=== PATIENT | male | born 1985 | race Caucasian/White ===

== ENCOUNTER 2017-06-16 09:34 | Inpatient (IN) | payer OTHER ==
[~2017-06-16] VITALS: Ht 175.2 cm; Wt 74.1 kg
[~2017-06-16 09:34] MED LIST: DEXTROAMPH SACC20 M1 PO; KLONOPIN0.5 MG PO; LEXAPRO10 MG PO; NEURONTIN400 MG PO
[2017-06-16 09:37] VITALS: BP 126/88
[2017-06-16] MEDS ORDERED: SUBOXONE 8 MG-1 EACH SL (09:41)
[2017-06-16 10:09] LABS: BASO % 0.3 % (0.0-1.0); EOS # 0.1 10*3/uL (0.0-0.4); EOS % 1.1 % (1.0-4.0); HEMATOCRIT 38.8 % (42.0-52.0); HEMOGLOBIN 13.1 g/dl (14.0-18.0); LYMPH # 2.5 10*3/uL (1.3-4.4); LYMPH % 38.1 % (27.0-41.0); MEAN CELL VOLUME 91.1 fl (80.0-94.0); MEAN CORPUSCULAR HGB 30.8 pg (27.0-31.0); MEAN CORPUSCULAR HGB CONC 33.8 g/dl (33.0-37.0); MEAN PLATELET VOLUME 12.3 fl (9.6-12.3); MONO # 0.4 10*3/uL (0.1-1.0); MONO % 5.6 % (3.0-9.0); NEUT # 3.6 10*3/uL (2.3-7.9); NEUT % 54.6 % (47.0-73.0); PLATELET COUNT AUTOMATED 134 10*3/uL (130-400); RED BLOOD COUNT 4.26 10*6/uL (4.50-5.90); RED CELL DISTRI WIDTH 12.3 % (0-14.5); WHITE BLOOD COUNT 6.6 10*3/uL (4.8-10.8)
[2017-06-16 10:21] LABS: BUN 8 mg/dl (7-24); CHLORIDE 102 mmol/L (98-107); CREATININE 0.63 mg/dL (0.70-1.30); POTASSIUM 3.8 mmol/L (3.5-5.1); SODIUM 138 mmol/L (136-145)
[2017-06-16 10:28] LABS: BILIRUBIN NEGATIVE (NEGATIVE); BLOOD NEGATIVE (NEGATIVE); CLARITY CLEAR (CLEAR); COLOR YELLOW (YELLOW); GLUCOSE NEGATIVE (NEGATIVE); KETONE NEGATIVE (NEGATIVE); LEUKO ESTERASE NEGATIVE (NEGATIVE); NITRITE NEGATIVE (NEGATIVE); UROBILINOGEN 0.2 E.U./dl (0.2-1.0)
[2017-06-16 10:32] LABS: ACETAMINOPHEN (TYLENOL) < 2.0 ug/ml (10-30); ETHYL ALCOHOL < 3.0 mg/dl (<3)
[2017-06-16 10:38] LABS: URINE AMPHETAMINES < 1000 (1000ng/ml); URINE BARBITURATES < 200 (200ng/ml); URINE BENZODIAZEPINES < 200 (200ng/ml); URINE CANNABINOIDS (THC) < 50 (50ng/ml); URINE COCAINE < 300 (300ng/ml); URINE METHADONE < 300 (300ng/ml); URINE OPIATES < 300 (300ng/ml)
[2017-06-16 10:39] LABS: URINE PHENCYCLIDINE < 25 (25ng/ml)
[2017-06-16 10:44] LABS: RBC 0-2 rbc/hpf (0-2); WBC 0-2 wbc/hpf (0-5)
[2017-06-16 11:00] VITALS: BP 118/70
[2017-06-16 12:30] VITALS: BP 120/69
[2017-06-16 13:53] LABS: ALBUMIN 3.6 gm/dl (3.1-4.5); ALKALINE PHOSPHATASE 59 U/L (45-117); BUN 9 mg/dl (7-24); CHLORIDE 104 mmol/L (98-107); POTASSIUM 3.9 mmol/L (3.5-5.1); SGOT/AST 16 IU/L (3-35); SGPT/ALT 44 U/L (12-78); SODIUM 138 mmol/L (136-145); TOTAL PROTEIN 7.9 gm/dL (6.4-8.2)
[2017-06-16 15:08] VITALS: BP 129/87
[2017-06-16 20:00] VITALS: BP 141/87
[2017-06-17] VITALS: BP 107/54
[2017-06-17 04:00] VITALS: BP 111/63
[2017-06-17 05:16] LABS: ALBUMIN 3.5 gm/dl (3.1-4.5); ALKALINE PHOSPHATASE 58 U/L (45-117); BUN 11 mg/dl (7-24); CHLORIDE 104 mmol/L (98-107); CREATININE 0.65 mg/dL (0.70-1.30); POTASSIUM 3.8 mmol/L (3.5-5.1); SGOT/AST 20 IU/L (3-35); SGPT/ALT 38 U/L (12-78); SODIUM 141 mmol/L (136-145); TOTAL PROTEIN 7.5 gm/dL (6.4-8.2)
[2017-06-17 08:00] VITALS: BP 108/71
[2017-06-17 12:00] VITALS: BP 109/62
[2017-06-17 16:00] VITALS: BP 115/71
[2017-06-17 20:00] VITALS: BP 117/72
== END 2017-06-17 21:16 | disposition left against medical advice (07) | DRG 894 ==
LOC: ED 09:34 → EDHOLD 11:39 → ICCU 11:39 → 5E 12:05 → ICCU 16:36
PROVIDERS: Internal Medicine; Nurse Practitioner
DX: F13.239 Sedative, hypnotic or anxiolytic dependence with withdrawal, unspecified (principal); G93.41 Metabolic encephalopathy; E83.51 Hypocalcemia; F22 Delusional disorders; F19.90 Other psychoactive substance use, unspecified, uncomplicated; F17.200 Nicotine dependence, unspecified, uncomplicated; Z88.9 Allergy status to unspecified drugs, medicaments and biological substances; F41.9 Anxiety disorder, unspecified; D64.9 Anemia, unspecified; F11.10 Opioid abuse, uncomplicated; R73.9 Hyperglycemia, unspecified; Z53.21 Procedure and treatment not carried out due to patient leaving prior to being seen by health care provider

== ENCOUNTER 2018-07-29 23:23 | Emergency (ER) | payer OTHER ==
[~2018-07-29] VITALS: Ht 182.8 cm; Wt 86.2 kg
[~2018-07-29 23:23] MED LIST changes: +SUBOXONE 8 MG-1 EACH SL
[2018-07-30 00:50] LABS: BASO % 0.5 % (0.0-1.0); EOS # 0.3 10*3/uL (0.0-0.4); HEMATOCRIT 43.3 % (42.0-52.0); HEMOGLOBIN 14.3 g/dl (14.0-18.0); LYMPH # 2.9 10*3/uL (1.3-4.4); LYMPH % 34.5 % (27.0-41.0); MEAN CELL VOLUME 90.8 fl (80.0-94.0); MEAN PLATELET VOLUME 13.5 fl (9.6-12.3); MONO # 0.7 10*3/uL (0.1-1.0); NEUT # 4.5 10*3/uL (2.3-7.9); NEUT % 52.8 % (47.0-73.0); PLATELET COUNT AUTOMATED 88 10*3/uL (130-400); RED BLOOD COUNT 4.77 10*6/uL (4.50-5.90); RED CELL DISTRI WIDTH 12.1 % (0-14.5); WHITE BLOOD COUNT 8.5 10*3/uL (4.8-10.8)
[2018-07-30 01:05] LABS: ALBUMIN 3.8 gm/dl (3.1-4.5); ALKALINE PHOSPHATASE 66 U/L (45-117); BUN 14 mg/dl (7-24); CHLORIDE 109 mmol/L (98-107); CREATININE 0.78 mg/dL (0.70-1.30); SGOT/AST 30 IU/L (3-35); SGPT/ALT 56 U/L (12-78); SODIUM 141 mmol/L (136-145); TOTAL PROTEIN 7.9 gm/dL (6.4-8.2)
[2018-07-30] MEDS ORDERED: PREDNISONE10 M1 PO ×2 (02:36→02:39)
[2018-07-30] MEDS ORDERED: PROAIR HFA8.5 GM INH (02:39)
== END 2018-07-30 02:42 | disposition home or self-care (01) ==
LOC: ED 23:23
PROVIDERS: Emergency Medicine
DX: J45.901 Unspecified asthma with (acute) exacerbation (principal); F17.200 Nicotine dependence, unspecified, uncomplicated; Z88.0 Allergy status to penicillin

== ENCOUNTER 2018-09-17 17:39 | Emergency (ER) | payer OTHER ==
[~2018-09-17] VITALS: Ht 182.8 cm; Wt 83.9 kg
[~2018-09-17 17:39] MED LIST changes: +PREDNISONE10 M1 PO; +PROAIR HFA8.5 GM INH
[2018-09-17] MEDS ORDERED: PROAIR HFA8.5 GM INH (18:43)
== END 2018-09-17 18:51 | disposition home or self-care (01) ==
LOC: ED 17:39
DX: H57.89 Other specified disorders of eye and adnexa (principal); Z76.0 Encounter for issue of repeat prescription; F17.200 Nicotine dependence, unspecified, uncomplicated; Z23 Encounter for immunization; Z88.0 Allergy status to penicillin; Z79.899 Other long term (current) drug therapy

== ENCOUNTER 2021-05-09 23:38 | Emergency (ER) | payer OTHER ==
[~2021-05-09] VITALS: Ht 182.8 cm; Wt 104.3 kg
[2021-05-09] MEDS ORDERED: MIRTAZAPINE15 M2 PO (23:47)
[2021-05-09] MEDS ORDERED: FLUOXETINE HCL40 MG PO (23:48)
[2021-05-10 00:49] LABS: BASO % 0.4 % (0.0-1.0); EOS # 0.2 10*3/uL (0.0-0.4); EOS % 2.7 % (1.0-4.0); HEMATOCRIT 40.2 % (42.0-52.0); LYMPH # 2.7 10*3/uL (1.3-4.4); LYMPH % 40.2 % (27.0-41.0); MEAN CELL VOLUME 88.9 fl (80.0-94.0); MEAN CORPUSCULAR HGB 30.5 pg (27.0-31.0); MEAN CORPUSCULAR HGB CONC 34.3 g/dl (33.0-37.0); MEAN PLATELET VOLUME 12.7 fl (9.6-12.3); MONO # 0.5 10*3/uL (0.1-1.0); MONO % 7.3 % (3.0-9.0); NEUT # 3.3 10*3/uL (2.3-7.9); PLATELET COUNT AUTOMATED 111 10*3/uL (130-400); RED BLOOD COUNT 4.52 10*6/uL (4.50-5.90); RED CELL DISTRI WIDTH 12.9 % (0-14.5); WHITE BLOOD COUNT 6.7 10*3/uL (4.8-10.8)
[2021-05-10 01:06] LABS: ALKALINE PHOSPHATASE 74 U/L (45-117); BUN 13 mg/dl (7-24); CHLORIDE 105 mmol/L (98-107); CREATININE 0.62 mg/dL (0.70-1.30); LIPASE 82 U/L (73-393); POTASSIUM 3.6 mmol/L (3.5-5.1); SGOT/AST 46 IU/L (3-35); SGPT/ALT 80 U/L (12-78); SODIUM 139 mmol/L (136-145); TOTAL PROTEIN 7.2 gm/dL (6.4-8.2)
== END 2021-05-10 05:53 | disposition home or self-care (01) ==
LOC: ED 23:38
PROVIDERS: Emergency Medicine
DX: R10.33 Periumbilical pain (principal); F17.200 Nicotine dependence, unspecified, uncomplicated; Z79.899 Other long term (current) drug therapy; Z88.0 Allergy status to penicillin

== ENCOUNTER 2022-02-20 10:19 | Inpatient (IN) | payer OTHER ==
[~2022-02-20] VITALS: Ht 182.9 cm; Wt 91.6 kg
[~2022-02-20 10:19] MED LIST changes: +FLUOXETINE HCL40 MG PO; +MIRTAZAPINE15 M2 PO
[2022-02-20 10:31] VITALS: BP 141/92
[2022-02-20 11:08] LABS: BASO % 0.6 % (0.0-1.0); EOS # 0.2 10*3/uL (0.0-0.4); EOS % 3.5 % (1.0-4.0); LYMPH # 2.2 10*3/uL (1.3-4.4); LYMPH % 45.5 % (27.0-41.0); MEAN CELL VOLUME 88.2 fl (80.0-94.0); MEAN CORPUSCULAR HGB 30.7 pg (27.0-31.0); MEAN CORPUSCULAR HGB CONC 34.8 g/dl (33.0-37.0); MEAN PLATELET VOLUME 12.3 fl (9.6-12.3); MONO # 0.5 10*3/uL (0.1-1.0); NEUT # 1.9 10*3/uL (2.3-7.9); PLATELET COUNT AUTOMATED 100 10*3/uL (130-400); RED BLOOD COUNT 4.99 10*6/uL (4.50-5.90); RED CELL DISTRI WIDTH 12.5 % (0-14.5); WHITE BLOOD COUNT 4.8 10*3/uL (4.8-10.8)
[2022-02-20 11:26] LABS: ALKALINE PHOSPHATASE 81 U/L (46-116); BUN 8 mg/dl (9-23); CHLORIDE 105 mmol/L (98-107); CREATININE 0.66 mg/dL (0.70-1.30); ETHYL ALCOHOL 220.2 mg/dl (<3); POTASSIUM 4.2 mmol/L (3.4-5.1); SGPT/ALT 69 U/L (10-49); SODIUM 140 mmol/L (136-145)
[2022-02-20 11:31] LABS: BILIRUBIN Negative (Negative); BLOOD Negative (Negative); CLARITY Clear (Clear); COLOR Yellow (Yellow); GLUCOSE Negative (Negative); KETONE Negative (Negative); LEUKO ESTERASE Negative (Negative); NITRITE Negative (Negative); PH 6.5 (4.5-8.0); SPECIFIC GRAVITY <= 1.005 (1.001-1.030); UROBILINOGEN 0.2 E.U./dl (0.0-1.0)
[2022-02-20 11:39] LABS: URINE AMPHETAMINES Negative (1000ng/ml); URINE BARBITURATES Negative (200ng/ml); URINE BENZODIAZEPINES Positive (200ng/ml); URINE CANNABINOIDS (THC) Negative (50ng/ml); URINE COCAINE Negative (300ng/ml); URINE METHADONE Negative (300ng/ml); URINE OPIATES Negative (300ng/ml); URINE PHENCYCLIDINE Negative (25ng/ml)
[2022-02-20 11:40] LABS: RBC 0-2 rbc/hpf (0-2); WBC 0-2 wbc/hpf (0-5)
[2022-02-20 15:44] VITALS: BP 128/70
[2022-02-20 20:22] VITALS: BP 149/70
[2022-02-20] MEDS ORDERED: GABAPENTIN100 M2 PO (20:23)
[2022-02-20] MEDS ORDERED: BUPRENORPHINE HY8 MG SL (20:23)
[2022-02-20] MEDS ORDERED: BUSPAR15 MG PO (20:24)
[2022-02-20 22:20] VITALS: BP 132/86
[2022-02-21] VITALS (7 sets, daily range): BP systolic 126–1390; BP diastolic 78–95
[2022-02-21 03:19] LABS: BASO % 0.4 % (0.0-1.0); EOS # 0.2 10*3/uL (0.0-0.4); EOS % 3.3 % (1.0-4.0); HEMATOCRIT 41.7 % (42.0-52.0); LYMPH # 1.8 10*3/uL (1.3-4.4); LYMPH % 35.7 % (27.0-41.0); MEAN CELL VOLUME 90.7 fl (80.0-94.0); MEAN CORPUSCULAR HGB 31.7 pg (27.0-31.0); MEAN PLATELET VOLUME 12.9 fl (9.6-12.3); MONO # 0.5 10*3/uL (0.1-1.0); NEUT # 2.4 10*3/uL (2.3-7.9); NEUT % 49.4 % (47.0-73.0); PLATELET COUNT AUTOMATED 91 10*3/uL (130-400); RED CELL DISTRI WIDTH 12.7 % (0-14.5); WHITE BLOOD COUNT 4.9 10*3/uL (4.8-10.8)
[2022-02-21 03:32] LABS: ACT PARTIAL THROMBO TIME 26.8 SECONDS (20.0-32.1)
[2022-02-21 04:11] LABS: ALKALINE PHOSPHATASE 70 U/L (46-116); BUN 10 mg/dl (9-23); CHLORIDE 105 mmol/L (98-107); CREATININE 0.69 mg/dL (0.70-1.30); POTASSIUM 3.9 mmol/L (3.4-5.1); SGPT/ALT 61 U/L (10-49); SODIUM 140 mmol/L (136-145); TOTAL PROTEIN 6.9 gm/dL (6.0-8.0)
[2022-02-22 05:07] LABS: ALKALINE PHOSPHATASE 76 U/L (46-116); BUN 8 mg/dl (9-23); CHLORIDE 103 mmol/L (98-107); CREATININE 0.76 mg/dL (0.70-1.30); POTASSIUM 4.4 mmol/L (3.4-5.1); SGPT/ALT 55 U/L (10-49); SODIUM 138 mmol/L (136-145)
[2022-02-22 06:15] LABS: BASO % 0.4 % (0.0-1.0); EOS # 0.2 10*3/uL (0.0-0.4); EOS % 3.2 % (1.0-4.0); HEMATOCRIT 42.6 % (42.0-52.0); LYMPH # 1.9 10*3/uL (1.3-4.4); LYMPH % 37.6 % (27.0-41.0); MEAN CELL VOLUME 89.1 fl (80.0-94.0); MEAN CORPUSCULAR HGB 30.3 pg (27.0-31.0); MEAN PLATELET VOLUME 13.8 fl (9.6-12.3); MONO # 0.5 10*3/uL (0.1-1.0); MONO % 10.2 % (3.0-9.0); NEUT # 2.4 10*3/uL (2.3-7.9); NEUT % 48.4 % (47.0-73.0); PLATELET COUNT AUTOMATED 83 10*3/uL (130-400); RED BLOOD COUNT 4.78 10*6/uL (4.50-5.90); RED CELL DISTRI WIDTH 12.3 % (0-14.5)
[2022-02-22 12:45] VITALS: BP 131/74
[2022-02-22 13:00] VITALS: BP 158/83
[2022-02-22 16:00] VITALS: BP 127/76
[2022-02-22 20:00] VITALS: BP 131/78
[2022-02-23] VITALS: BP 125/69
[2022-02-23 07:24] LABS: BASO % 0.4 % (0.0-1.0); EOS # 0.2 10*3/uL (0.0-0.4); EOS % 2.7 % (1.0-4.0); HEMATOCRIT 40.5 % (42.0-52.0); LYMPH # 1.4 10*3/uL (1.3-4.4); MEAN CELL VOLUME 89.4 fl (80.0-94.0); MEAN CORPUSCULAR HGB 31.3 pg (27.0-31.0); MEAN CORPUSCULAR HGB CONC 35.1 g/dl (33.0-37.0); MEAN PLATELET VOLUME 12.7 fl (9.6-12.3); MONO # 0.5 10*3/uL (0.1-1.0); MONO % 9.4 % (3.0-9.0); NEUT # 3.4 10*3/uL (2.3-7.9); NEUT % 62.1 % (47.0-73.0); PLATELET COUNT AUTOMATED 75 10*3/uL (130-400); RED BLOOD COUNT 4.53 10*6/uL (4.50-5.90); RED CELL DISTRI WIDTH 12.5 % (0-14.5); WHITE BLOOD COUNT 5.5 10*3/uL (4.8-10.8)
[2022-02-23 07:46] LABS: ALKALINE PHOSPHATASE 68 U/L (46-116); BUN 11 mg/dl (9-23); CHLORIDE 99 mmol/L (98-107); CREATININE 0.69 mg/dL (0.70-1.30); POTASSIUM 4.1 mmol/L (3.4-5.1); SGPT/ALT 69 U/L (10-49); SODIUM 135 mmol/L (136-145); TOTAL PROTEIN 7.1 gm/dL (6.0-8.0)
[2022-02-23 08:00] VITALS: BP 127/79
[2022-02-23 12:00] VITALS: BP 117/73
[2022-02-23 16:00] VITALS: BP 131/64
== END 2022-02-23 18:29 | disposition home or self-care (01) | DRG 775 ==
LOC: ED 10:19 → EDHOLD 12:04 → ED 12:04 → EDHOLD 12:22 → 5E 22:09 → EDHOLD 22:09 → 5E 02-22 12:30
PROVIDERS: Family Medicine; Internal Medicine; Student in an Organized Health Care Education/Training Program; ADMIT Family Medicine; ATTEND Family Medicine
DX: F10.930 Alcohol use, unspecified with withdrawal, uncomplicated (principal); F13.930 Sedative, hypnotic or anxiolytic use, unspecified with withdrawal, uncomplicated; F41.9 Anxiety disorder, unspecified; I10 Essential (primary) hypertension; F17.210 Nicotine dependence, cigarettes, uncomplicated; F10.920 Alcohol use, unspecified with intoxication, uncomplicated; D69.6 Thrombocytopenia, unspecified; R73.9 Hyperglycemia, unspecified; F31.9 Bipolar disorder, unspecified; Z88.0 Allergy status to penicillin; Z86.19 Personal history of other infectious and parasitic diseases; Z83.3 Family history of diabetes mellitus; Z71.6 Tobacco abuse counseling

== ENCOUNTER 2022-03-01 15:42 | Emergency (ER) | payer OTHER ==
[~2022-03-01] VITALS: Wt 91.6 kg
[~2022-03-01 15:42] MED LIST changes: +BUPRENORPHINE HY8 MG SL; +BUSPAR15 MG PO; +GABAPENTIN100 M2 PO
[2022-03-01 19:10] LABS: HEMATOCRIT 35.9 % (42.0-52.0); MEAN CELL VOLUME 93.2 fl (80.0-94.0); MEAN CORPUSCULAR HGB 31.2 pg (27.0-31.0); MEAN CORPUSCULAR HGB CONC 33.4 g/dl (33.0-37.0); MEAN PLATELET VOLUME 12.6 fl (9.6-12.3); NUCLEATED RED BLOOD CELL 0.1 10*3/uL (0.0-0.0); NUCLEATED RED BLOOD CELL 0.8 % (0.0-0.0); PLATELET COUNT AUTOMATED 112 10*3/uL (130-400); RED BLOOD COUNT 3.85 10*6/uL (4.50-5.90); WHITE BLOOD COUNT 7.1 10*3/uL (4.8-10.8)
[2022-03-01 19:23] LABS: INTERNATIONAL NORM RATIO 1.1 (2.0-3.5)
[2022-03-01 19:36] LABS: ALKALINE PHOSPHATASE 64 U/L (46-116); BUN 15 mg/dl (9-23); CHLORIDE 107 mmol/L (98-107); CPK 316 U/L (34-171); CREATININE 1.05 mg/dL (0.70-1.30); MYOGLOBIN 614.2 ng/ml (16-116); POTASSIUM 3.3 mmol/L (3.4-5.1); SGPT/ALT 169 U/L (10-49); TOTAL PROTEIN 6.3 gm/dL (6.0-8.0)
[2022-03-01 19:40] LABS: ETHYL ALCOHOL 312.8 mg/dl (<3)
[2022-03-01 19:43] LABS: MANUAL DIFF REFLEX YES
[2022-03-01 19:50] LABS: PLATELET SUFFICIENCY LOW (NORMAL); TOTAL CELLS COUNTED 100 #CELLS
== END 2022-03-01 18:08 | disposition short-term general hospital (02) ==
LOC: ED 15:42
PROVIDERS: Family Medicine
DX: S21.131A Puncture wound without foreign body of right front wall of thorax without penetration into thoracic cavity, initial encounter (principal); S51.831A Puncture wound without foreign body of right forearm, initial encounter; J94.2 Hemothorax; I95.9 Hypotension, unspecified; Z88.0 Allergy status to penicillin; F10.90 Alcohol use, unspecified, uncomplicated; Z87.891 Personal history of nicotine dependence; W34.00XA Accidental discharge from unspecified firearms or gun, initial encounter; Y93.89 Activity, other specified; Y92.89 Other specified places as the place of occurrence of the external cause; Y99.8 Other external cause status

== ENCOUNTER 2022-05-05 18:14 | Emergency (ER) | payer OTHER ==
[~2022-05-05] VITALS: Ht 182.8 cm; Wt 82.6 kg
[2022-05-05] MEDS ORDERED: SEPTDS PO (19:37)
[2022-05-05] MEDS ORDERED: NAPROSYN500 MG PO (19:38)
== END 2022-05-05 20:42 | disposition home or self-care (01) ==
LOC: ED 18:14
DX: L03.114 Cellulitis of left upper limb (principal); Z88.0 Allergy status to penicillin; Z98.890 Other specified postprocedural states; Z87.891 Personal history of nicotine dependence; F41.9 Anxiety disorder, unspecified; F10.10 Alcohol abuse, uncomplicated

== ENCOUNTER → 2022-10-03 | Outpatient (CLI) | payer OTHER ==
[~2022-10-03] MED LIST changes: +NAPROSYN500 MG PO; +SEPTDS PO
== END | disposition home or self-care (01) ==
LOC: RAD 09:12
PROVIDERS: ATTEND Nurse Practitioner Family
DX: K31.84 Gastroparesis (principal); K43.2 Incisional hernia without obstruction or gangrene